=== PATIENT | female | born 1990 | race Caucasian/White ===

== ENCOUNTER 2016-04-17 14:07 | Emergency (ER) | payer SELFPAY ==
[~2016-04-17] VITALS: Ht 170.2 cm; Wt 65.9 kg
[2016-04-17 14:09] VITALS: BP 106/66; RESP 15; O2SAT 99
--- NOTE | 2016-04-17 14:50 | ED.REPORT ---
HPI-URI / Cough / Cold Date of Service Apr 17, 2016 ED Provider: Shade Munoz MD Taysusanrowan is not otherwise healthy 25-year-old female with a chief complaint of a sore throat. She states her sore throat began this morning and was proceeded by one day of rhinorrhea, cough, nausea, dyspnea. She noted spots in the back of her throat. Denies ear or eye symptoms, fever, abdominal pain, vomiting urinary symptoms, difficulty breathing or swallowing. Nursing Notes Stated Complaint: THROAT PAIN Chief Complaint: ENT & Mouth Nursing Notes Reviewed: Yes Allergies: Coded Allergies: No Known Allergies (Verified Allergy, Unknown, 04/17/16) Scheduled PRN Benzonatate (Tessalon Perle) 100 Mg Capsule 100 MG PO TID PRN PRN For Cough General Time Seen by MD: 14:24 Chief Complaint Sore throat Past Medical History Past Medical History none reported Past Surgical History none reported Smoking History Current Every Day Smoker Review of Systems Review of Systems Note: Negative unless stated otherwise in history of present illness Physical Exam General: Well appearing, well developed, well nourished, no acute distress. Head: Atraumatic, normocephalic. No mastoid tenderness. Eyes: No scleral icterus or injection. No discharge. PERRL. Vision grossly intact. Ears: Pinna and tragus nontender with manipulation. External auditory canal patent, atraumatic and without discharge. Tympanic membrane garg, shiny and translucent without fluid, bulging, retraction or perforation. Hearing grossly intact. Nose: Symmetrical, nares patent without discharge. No frontal or maxillary sinus tenderness. Mouth/pharynx: Tonsils 3+ and symmetrical, several small white lesions left greater than right. Poor dentition, mucus membranes moist. uvula midline. Pharynx noninjected, no cobblestoning or discharge. Voice clear. Neck: One centimeter tender anterior lymphadenopathy bilateral. Trachea midline . Respiratory: Clinically evident dry cough. Regular rate and rhythm. Breath sounds present, clear to auscultation and equal bilaterally. Cardiovascular: Regular rate and rhythm, without murmur, gallop or rub. Skin: Warm and dry. Neurological: Grossly nonfocal. Psychological: Alert and oriented. Speech appropriate, linear and logical. Behavior appropriate. Initial Vital Signs Vital Signs (First) Date Time Temp Pulse Resp B/P Pulse Ox O2 Delivery O2 Flow Rate FiO2 04/17/16 14:09 36.5 72 15 106/66 99 Room Air Initial VS: Reviewed, Vital signs normal Interpretation & Diagnostics Interpretation & Diagnostics: Rapid strep negative. Re-Eval/Medical Decision Med Decision/Clinical Course Otherwise healthy 25-year-old female presents with sore throat with exudate present since this morning. Symptoms preceded by rhinorrhea, nasal congestion, cough. Denies fever. Physical exam is generally benign and reveals to the 4 Centor criteria (tender lymphadenopathy, tonsillar exudate) ordered rapid strep, which was negative. I believe this is of viral upper respiratory infection. Advised [id number] analgesia, primary care follow-up, return precautions Discharge & Departure Impression: Primary Impression: Upper respiratory infection URI type: unspecified viral URI Qualified Code: J06.9 - Acute upper respiratory infection, unspecified Disposition: Home Discharge Condition All VS Reviewed: Yes Condition: Stable Patient Instructions: Upper Respiratory Infection (ED) Additional Instructions: History and physical are reassuring that this is unlikely to be a condition such as pneumonia or strep throat that requires antibiotic treatment. I believe that you have a viral upper respiratory infection. Rest, drink small amounts of fluids throughout the day, and eat small amounts of food as tolerated. The treatment is largely symptomatic: I typically recommend doxylamine/ dextromethorphan (brand name: Robitussin Extra Strength Nighttime Cough DM) for use at night, which will help you sleep and reduce cough. If your pharmacy does not have this, ask your pharmacist to recommend an alternative. Pain and fever is best treated with 400 mg of ibuprofen (Advil, Motrin) every 6 hours, or 1000 mg of acetaminophen (Tylenol) every 6 hours. These drugs can be taken at the same time for more severe pain. Pseudoephedrine (Sudafed) taken in the morning will help relieve nasal congestion. In many pharmacies this is kept behind the counter, so ask the pharmacist. Cepacol lozenges are very helpful for sore throat. I will write a prescription for Tessalon pearls to use to suppress the cough during the day. I will provide a referral to a primary care provider to follow up with if your symptoms have not significantly improved in a week. Remember that sometimes a cough can take up to a month to completely resolve. Return to the emergency department for new or worsening symptoms including chest pain, shortness of breath, difficulty breathing or speaking. Referrals: [facility] E[facility]vising Provider for [facility]: Shade Munoz MD Attending Statement Attending attestation: I saw this patient in conjunction with Ayo Brunson PA-C. I agree with the workup, evaluation, treatment and disposition. Ayo Bledsoe MD, PA-C Apr 17, 2016 14:50 Shade Munoz MD Apr 17, 2016 17:03
[2016-04-17] MEDS ORDERED: BENZ-12 PO (14:54)
== END 2016-04-17 15:02 | disposition home or self-care (01) ==
LOC: SED 14:07
DX: J06.9 Acute upper respiratory infection, unspecified (principal); F17.200 Nicotine dependence, unspecified, uncomplicated